=== PATIENT | female | born 1990 | race Caucasian/White ===

== ENCOUNTER 2019-12-28 17:14 | Inpatient (IN) | payer OTHER ==
[~2019-12-28 17:14] MED LIST: Bupivacaine/Epinephrine 0.25% 30 ML VIAL ONE
[2019-12-28 18:02] VITALS: BMI 25.8
[2019-12-28] MEDS ORDERED: Penicillin G Potassium 5 MILL.UNITS VIAL ONE (18:05)
[2019-12-28] MEDS ORDERED: Sodium Chloride 0.9% 100 ML ONE (18:05)
[2019-12-28] MEDS ORDERED: Ondansetron PF 4 MG/2 ML Vial IVP PRN (19:06)
[2019-12-28] MEDS ORDERED: Lidocaine 1% (PF) 30 ML VIAL SC PRN (19:06)
[2019-12-28] MEDS ORDERED: HYDROcodone/Acetaminophen 5/325 mg Tablet PO PRN (19:06)
[2019-12-28] MEDS ORDERED: NS / Oxytocin 40 units/1000ml 1,000 ML IV PRN (19:06)
[2019-12-28] MEDS ORDERED: Ibuprofen 800 MG TAB PO PRN (19:06)
[2019-12-28] MEDS ORDERED: Butorphanol Tartrate 1 MG/ML VIAL SLOW IVP PRN (19:06)
[2019-12-28] MEDS ORDERED: hydrALAZINE 20 MG/ML VIAL SLOW IVP PRN (19:06)
[2019-12-28] MEDS ORDERED: Penicillin G Potassium 5 MILL.UNITS in Sodium Chloride 0.9% 100 ML IVPB SCH (19:15)
[2019-12-28 19:29] LABS: Hemoglobin 13.2 g/dL (12.0-16.0); Mean Corpuscular HGB CONC 34.3 g/dL (32.0-36.0); Mean Corpuscular Volume 93.4 fL (78.0-98.0); Mean Platelet Volume 9.4 fL (7.4-10.4); Platelet Count 239 thou/uL (130-400); RBC Distribution Width 12.8 % (11.5-14.5); Red Blood Cell (RBC) Count 4.12 mill/uL (4.20-5.40); White Blood Cell (WBC) Count 12.8 thou/uL (4.8-10.8)
[2019-12-28 20:09] LABS: Syphilis Antibody Nonreactive (Nonreactive); Syphilis Antibody Index 0.04 S/CO (<1.00 Non-Reactive)
[2019-12-28] MEDS: Lactated Ringer's 1,000 ML IV SCH (22:10)
[2019-12-28 22:42] LABS: HBSAg Index 0.17 S/CO (0-0.99); Hep B Surf Ag Non-Reactive S/CO (NonReactive)
[2019-12-29] MEDS: Penicillin G 2.5 MILL.units 2.5 MILL.UNITS in Premix Bag 1 BAG IVPB SCH ×4 (07:54→20:44)
[2019-12-29] MEDS ORDERED: Labetalol HCl 100 MG/20 ML VIAL SLOW IVP PRN (08:35)
--- NOTE | 2019-12-29 08:57 | PDOC.LDHP ---
Labor and Delivery H&P Chief complaint: loss of fluid HPI: 29yo at 40w3d by LMP here for SROM yesterday at 1700, clear. Painful ctx, on pitocin since 5am. Current gestational age (weeks): 40 Due date: 12/26/19 Dating criteria: last menstrual period Grav: 1 Para: 0 Current complications: none Abnormal US findings: No Past Medical History: denies Current medications: pre-zbigniew vitamins Previous surgical history: none Allergies/Adverse Reactions: Allergies Allergy/AdvReac Type Severity Reaction Status Date / Time No Known Allergies Allergy Verified 12/28/19 17:45 Social history: none - Physical Exam Abnormal vital signs: severe range bp General: NAD Heart: RRR Lungs: CTAB Abdomen: gravid Extremeties: no edema FHT: category 1 [place] contractions every: 3-4min - Vaginal Exam cm dilated: 5 Effacement: 75% Station: -1 - OB Labs Blood type: A RH: positive Antibody Screen: negative HIV: negative RPR: negative HEPSAg: negative 1 hour GCT: negative GBS: positive Urine drug screen: negative Rubella: immune - Assessment L&D Assessment: term rupture in membranes - Plan Plan: admit to L&D, labor augmentation if indicated, GBS antibiotic prophylaxis, informed consent obtained, anesthesia consult for pain management -: Labs to eval for PIH, labetalol prn severe BP, mag for persistent severe features.
[2019-12-29] MEDS ORDERED: FLU VACC QS2020-21(6MOS UP)/PF 60 MCG/0.5 ML SYRINGE IM ONE (09:00)
[2019-12-29] MEDS ORDERED: Labetalol HCl 100 MG/20 ML VIAL SLOW IVP SCH ×2 (09:00)
[2019-12-29 12:14] LABS: ALT (SGPT) 10 U/L (8-55); AST (SGOT) 18 U/L (5-34); Albumin 3.2 g/dL (3.5-5.0); Alkaline Phosphatase 288 U/L (40-110); Anion Gap 14 mmol/L (10-20); BUN (Urea Nitrogen) 8 mg/dL (7.0-18.7); Bilirubin, Total 0.2 mg/dL (0.2-1.2); Calc. Creatinine Clearance 95 mL/min (70-130); Calcium 8.6 mg/dL (7.8-10.44); Carbon Dioxide 21 mmol/L (22-29); Chloride 104 mmol/L (98-107); Estimated GFR-MDRD 66; Globulin 2.9 g/dL (2.4-3.5); Glucose 117 mg/dL (70-105); Potassium 4.1 mmol/L (3.5-5.1); Protein, Total 6.1 g/dL (6.0-8.3); Sodium 135 mmol/L (136-145)
[2019-12-29 12:44] LABS: SARS-CoV-2 MS2 Positive; SARS-CoV-2 N Gene Negative; SARS-CoV-2 S Gene Negative; SARS-CoV-2 by NAA Not Detected (NotDetected); SARS-CoV-2 orf1ab Negative
[2019-12-29] MEDS ORDERED: Fentanyl 4 mcg/Bup 0.1% Cadd 100 ML ONE (18:56)
[2019-12-29] MEDS: Lactated Ringer's 1,000 ML IV SCH (19:48)
[2019-12-29] MEDS ORDERED: Ondansetron PF 4 MG/2 ML Vial IVP PRN (19:48)
[2019-12-29] MEDS ORDERED: Acetaminophen 325 MG TAB PO PRN (19:48)
[2019-12-29] MEDS ORDERED: Promethazine HCl 25 MG/ML VIAL IM PRN (19:48)
[2019-12-29] MEDS ORDERED: Lactated Ringer's 500 ML IV PRN (19:48)
[2019-12-29] MEDS ORDERED: EPHEDRINE 25 MG/5 ML SYRINGE SLOW IVP PRN (19:48)
[2019-12-29] MEDS ORDERED: Naloxone HCl 0.4 mg/ml Vial IVP PRN ×2 (19:48)
[2019-12-29] MEDS ORDERED: diphenhydrAMINE 50 MG/ML VIAL IVP PRN (19:48)
[2019-12-29] MEDS ORDERED: Communication Order-Pharmacy FS SCH (20:00)
[2019-12-29] MEDS ORDERED: Fentanyl 4 mcg/Bupivacaine 0.1% Cassette 100 ML EPIDURAL SCH (20:00)
[2019-12-29] MEDS: NS w/ Oxytocin 10 units 500 ML IVPB SCH (20:09)
[2019-12-30] MEDS: Penicillin G 2.5 MILL.units 2.5 MILL.UNITS in Premix Bag 1 BAG IVPB SCH ×4 (00:49→19:39)
[2019-12-30] MEDS ORDERED: Fentanyl 4 mcg/Bup 0.1% Cadd 100 ML ONE (02:45)
[2019-12-30] MEDS: Lactated Ringer's 1,000 ML IV SCH ×3 (04:16→19:39)
[2019-12-30] MEDS ORDERED: Methylergonovine 0.2 MG/ML VIAL ONE (07:11)
[2019-12-30] MEDS ORDERED: Misoprostol 200 MCG TAB ONE ×4 (07:11)
[2019-12-30] MEDS ORDERED: Carboprost 250 MCG/ML AMP ONE (07:12)
[2019-12-30] MEDS: NS w/ Oxytocin 10 units 500 ML IVPB SCH (07:51)
[2019-12-30] MEDS ORDERED: Lidocaine 1% (PF) 30 ML VIAL ONE (08:00)
[2019-12-30] MEDS ORDERED: NS / Oxytocin 40 units/1000ml 1,000 ML ONE (08:01)
--- NOTE | 2019-12-30 09:49 | PDOC.OPDEL ---
OB Operative/Delivery Note Delivery Dr/Surgeon: Judah Assist: n/a Pre-Delivery Diagnosis: ruptured membrane Procedure/Post Delivery Dx: spontaneous vaginal delivery Weeks gestation: 40 Anesthesia: epidural - Findings A Sex: male - 1 min: 8 - 5 min: 9 - Additional Findings/Plan Placenta delivered: spontaneous Repaired Obstetrical Laceration: 1st degree Estimated blood loss: 350cc Post delivery plan: routine recovery
[2019-12-30] MEDS ORDERED: Milk Of Magnesia 30 ML UDCUP PO PRN (11:07)
[2019-12-30] MEDS ORDERED: Benzocaine-Menthol 82.5 ML CAN TOP PRN (11:07)
[2019-12-30] MEDS ORDERED: Lanolin Ointment 7 GM TUBE TOP PRN (11:07)
[2019-12-30] MEDS ORDERED: NS / Oxytocin 40 units/1000ml 1,000 ML IV SCH (11:07)
[2019-12-30] MEDS ORDERED: Adacel (T-DAP) 0.5 ML SYRINGE IM ONE (11:07)
[2019-12-30] MEDS ORDERED: Promethazine HCl 25 MG/ML VIAL IM PRN (11:07)
[2019-12-30] MEDS ORDERED: hydrALAZINE 20 MG/ML VIAL SLOW IVP PRN (11:07)
[2019-12-30] MEDS ORDERED: Ondansetron PF 4 MG/2 ML Vial IVP PRN (11:07)
[2019-12-30] MEDS ORDERED: diphenhydrAMINE 25 MG CAP PO PRN (11:07)
[2019-12-30] MEDS ORDERED: Bisacodyl 10 MG SUPP PR PRN (11:07)
[2019-12-30] MEDS ORDERED: HYDROcodone/Acetaminophen 5/325 mg Tablet PO PRN ×2 (11:07)
[2019-12-30] MEDS ORDERED: Preparation H Ointment 28 GM TUBE PR PRN (11:07)
[2019-12-30] MEDS: Ibuprofen 800 MG TAB PO SCH ×2 (13:55→20:24)
[2019-12-30] MEDS: Ferrous Sulfate 325 MG TAB PO SCH (17:28)
[2019-12-30] MEDS: Docusate Calcium (SURFAK) 240 MG CAP PO SCH (20:22)
[2019-12-31] MEDS: Ibuprofen 800 MG TAB PO SCH ×3 (06:01→21:07)
[2019-12-31] MEDS: Prenatal Vitamin 1 TAB PO SCH (08:20)
[2019-12-31] MEDS: Docusate Calcium (SURFAK) 240 MG CAP PO SCH ×2 (08:20→21:07)
[2019-12-31] MEDS: Ferrous Sulfate 325 MG TAB PO SCH ×2 (08:28→13:38)
--- NOTE | 2019-12-31 08:57 | PRG ---
DATE OF SERVICE: 12/31/2019 SUBJECTIVE: The patient is day 1, status post a term spontaneous vaginal delivery. She has no complaints this morning. She is tolerating p.o., voiding on her own, having decreased lochia and good pain control. OBJECTIVE: VITAL SIGNS: Blood pressure is 131/80, respiratory rate is 16, pulse is 64, temperature 98.1. GENERAL: She appears to be in no acute distress. She is alert, oriented, cooperative, and pleasant to interact with. HEENT: Head is normocephalic, atraumatic. ABDOMEN: Fundus is firm at the umbilicus. EXTREMITIES: Nontender, nonedematous. ASSESSMENT AND PLAN: The patient is a 29-year-old G1, P0 female, now day 1, status post a term spontaneous vaginal delivery. Anticipate discharge tomorrow. Job ID: [id number]
[2019-12-31 20:12] VITALS: TEMP 97.7
[2020-01-01] MEDS: Ibuprofen 800 MG TAB PO SCH (04:04)
--- NOTE | 2020-01-01 06:46 | PDOC.PP ---
Post Progress Note Post Day #: PPD2 Subjective: Doing well. Wants to go home. PO intake tolerated: yes Flatus: yes Ambulation: yes Vital Signs (12 hours) Temp Pulse Resp BP 12/31/19 23:05 52 L 140/81 12/31/19 19:50 97.7 F 69 16 135/65 Weight Weight 72.575 kg - Physical Examination General: NAD Respiratory: non-labored breathing Neurological: no gross focal deficits Psychiatric: normal affect Result Diagrams: 12/28/19 19:12 12/29/19 11:28 Additional Labs: Post Labs Hep Bs Antigen Non-Reactive S/CO (NonReactive) 12/28/19 19:12 Blood Type A POSITIVE 12/28/19 20:04 - Assessment/Plan DC home. Precautions. RTC [address] So.
[2020-01-01] MEDS: Ferrous Sulfate 325 MG TAB PO SCH (07:32)
[2020-01-01] MEDS: Docusate Calcium (SURFAK) 240 MG CAP PO SCH (07:32)
[2020-01-01] MEDS: Prenatal Vitamin 1 TAB PO SCH (07:32)
[2020-01-01 09:24] VITALS: BP 140/74
== END 2020-01-01 11:50 | disposition home or self-care (01) | DRG 807 ==
LOC: L&D/OP 17:14 → L&D 18:00 → 3SW 12-30 12:30
PROVIDERS: ADMIT Student in an Organized Health Care Education/Training Program; ATTEND Student in an Organized Health Care Education/Training Program
PROC: 10E0XZZ Delivery of Products of Conception, External Approach (ICD-10-PCS; principal; 2019-12-30)
PROC: 0HQ9XZZ Repair Perineum Skin, External Approach (ICD-10-PCS; 2019-12-30)
DX: O70.0 First degree perineal laceration during delivery (principal); Z37.0 Single live birth; Z3A.40 40 weeks gestation of pregnancy
CPT/HCPCS: 36415; 51702; 80053; 85027; 86780; 86850; 86900; 86901; 87340; 87635; 99285; J2001; J2210; J2540; J2590; J3490; U0003